=== PATIENT | male | born 1970 | race Caucasian/White ===

== ENCOUNTER 2017-12-13 09:49 | Emergency (ER) | payer SELFPAY ==
[~2017-12-13] VITALS: Ht 180.3 cm; Wt 77.1 kg
[2017-12-13] MEDS ORDERED: DIPH25CA83 PO (09:54)
[2017-12-13] MEDS ORDERED: ACET-2154 PO (09:54)
--- NOTE | 2017-12-13 10:25 | NUR ---
PATIENT WAS MSE BY DR TOLEDO IN ROOM 03A.
[2017-12-13 10:53] LABS: BASOPHILS # (AUTO) 0.1 K/uL (0.0-8.0); BASOPHILS % (AUTO) 0.6 % (0.0-2.0); EOSINOPHILS # (AUTO) 0.1 K/uL (0.0-0.7); EOSINOPHILS % (AUTO) 0.5 % (0.0-7.0); HEMATOCRIT 36.8 % (36.7-47.1); HEMOGLOBIN 12.2 g/dL (12.5-16.3); LYMPHOCYTES # (AUTO) 2.3 K/uL (20.0-40.0); LYMPHOCYTES % (AUTO) 12.7 % (20.5-51.5); MEAN CORPUSCULAR HGB CONC 33 g/dL (32.5-36.3); MEAN CORPUSCULAR VOLUME 84.5 fL (73.0-96.2); MONOCYTES # (AUTO) 1.6 K/uL (2.0-10.0); MONOCYTES % (AUTO) 9.1 % (0.0-11.0); NEUTROPHILS # (AUTO) 13.8 K/uL (1.8-8.9); NEUTROPHILS % (AUTO) 77.1 % (38.5-71.5); PLATELET COUNT (AUTO) 421 K/uL (152-348); RED BLOOD CELL COUNT(AUTO) 4.35 MIL/uL (4.06-5.63); WHITE BLOOD COUNT (AUTO) 17.9 K/uL (3.6-10.2)
[2017-12-13 10:57] LABS: CARBON DIOXIDE 28 mmol/L (21-32); CHLORIDE 104 mmol/L (98-107); CREATININE 0.8 mg/dL (0.6-1.3); GLUCOSE 102 mg/dL (74-106); POTASSIUM 3.7 mmol/L (3.5-5.1); UREA NITROGEN, BLOOD 20 mg/dL (7-18)
[2017-12-13 11:01] LABS: ALANINE AMINOTRANSFERASE 25 U/L (16-63); ALKALINE PHOSPHATASE 72 U/L (50-136); ASPARTATE AMINOTRANSFERASE 13 U/L (15-37); BILIRUBIN,DIRECT < 0.1 mg/dL (0.0-0.2); BILIRUBIN,TOTAL 0.2 mg/dL (0.2-1.0); TOTAL PROTEIN, SERUM 6.7 g/dL (6.4-8.2)
[2017-12-13] MEDS ORDERED: MORPHINE SULFATE 4 MG/1 ML DISP.SYRIN ONE (11:58)
[2017-12-13] MEDS ORDERED: ONDANSETRON 4 MG/2 ML VIAL ONE (11:59)
[2017-12-13] MEDS ORDERED: MORPHINE SULFATE 2 MG/1 ML DISP.SYRIN IV ONE (12:00)
[2017-12-13] MEDS ORDERED: SWABABLE VALVE TRANSFER SET EA MC ONE (12:00)
[2017-12-13] MEDS ORDERED: IOHEXOL 300MG/ML 100 ML INFUS..BTL IV ONE (12:00)
[2017-12-13] MEDS ORDERED: ONDANSETRON 4 MG/2 ML VIAL IV ONE (12:00)
[2017-12-13] MEDS ORDERED: IV NORMAL SALINE 250 ML BAG IV ONE (12:00)
--- NOTE | 2017-12-13 12:27 | NUR ---
SPOKE WITH [facility] FROM [facility] FOR HIGHER LEVEL OF CARE TRANSFER. WILL FAX INFO TO [phone].
[2017-12-13] MEDS ORDERED: IV NS 1000 ML 1,000 ML IV ONE (13:30)
--- NOTE | 2017-12-13 13:32 | NUR ---
Called [facility] for [facility] transfer per request. Per Angelo (opr#[phone]) there are no beds available.
--- NOTE | 2017-12-13 13:54 | NUR ---
Patient discharged to home in stable conditon. Written and verbal after care instructions given. Patient verbalizes understanding of instructions. Stressed immeidate follow up as advised by .
[2017-12-13 13:56] VITALS: BP 134/87
== END 2017-12-13 14:22 | disposition home or self-care (01) ==
LOC: EDBD 09:49 → ER 09:49
DX: I44.7 Left bundle-branch block, unspecified (principal); R22.2 Localized swelling, mass and lump, trunk; I87.1 Compression of vein; F17.200 Nicotine dependence, unspecified, uncomplicated
CPT/HCPCS: 36415; 70491; 71260; 74177; 80048; 80076; 85025; 85730; 93005; 96374 ×2; 99285; A4663; J2270; J2405; J7050; Q9967